=== PATIENT | female | born 2000 | race Caucasian/White ===

== ENCOUNTER 2022-07-22 11:56 | Inpatient (IN) | payer OTHER ==
[~2022-07-22] VITALS: Ht 157.5 cm; Wt 69.4 kg
[2022-07-22] VITALS (25 sets, daily range): BP systolic 96–135; BP diastolic 43–81
[2022-07-22] MEDS ORDERED: PRENTAB9 PO (12:23)
[2022-07-22] MEDS ORDERED: HOME MED LIST COMPLETE! XX SCH (12:25)
[2022-07-22] MEDS ORDERED: LACTATED RINGER'S 1000 ML IV STA (13:28)
[2022-07-22] MEDS ORDERED: METHYLERGONOVINE MALEATE 0.2 MG/ML VIAL (J2210) IM PRN (13:30)
[2022-07-22] MEDS ORDERED: LIDOCAINE 1% MDV 20ML VIAL INFIL PRN (13:30)
[2022-07-22] MEDS ORDERED: CARBOPROST TROMETHAMINE 250 MCG/ML AMP IM PRN (13:30)
[2022-07-22] MEDS ORDERED: PROMETHAZINE 25MG/ML 1ML VIAL IV ONE (13:30)
[2022-07-22] MEDS ORDERED: BUTORPHANOL 2 MG/ML 1ML VIAL IV ONE (13:30)
[2022-07-22] MEDS ORDERED: TRANEXAMIC ACID INJection 1,000 MG in NS 100 ML IV PRN (13:30)
[2022-07-22] MEDS ORDERED: LR 1,000 ML IV SCH (13:30)
[2022-07-22] MEDS ORDERED: OXYTOCIN DRIP 30 UNITS in IV 1 EA IV PRN ×4 (13:30)
[2022-07-22] MEDS ORDERED: OXYTOCIN INJ 10UNITS/ML 1ML VIAL IM PRN (13:30)
[2022-07-22 14:16] LABS: HEMATOCRIT 35.9 % (36.0-47.0); MEAN CORPUSCULAR HEMOGLOBIN 29.3 pg (27.0-33.0); MEAN CORPUSCULAR HGB CONC 33.4 g/dl (32.0-36.5); MEAN CORPUSCULAR VOLUME 87.8 fl (80.0-96.0); PLATELET COUNT, AUTOMATED 308 10^3/uL (150-450); RED BLOOD COUNT 4.09 10^6/uL (4.00-5.40)
[2022-07-22] MEDS ORDERED: ePHEDrine SULFATE 25 MG/5 ML(5MG/ML) SYRINGE IVP PRN (14:30)
[2022-07-22] MEDS ORDERED: EPIDURAL/PCA KEYS XX PRN (14:30)
[2022-07-22] MEDS ORDERED: diphenhydrAMINE 50MG/ML VIAL IV PRN (14:30)
[2022-07-22] MEDS ORDERED: NALOXONE INJ 0.4MG/1ML VIAL IV PRN (14:30)
[2022-07-22] MEDS ORDERED: FENTANYL/ROPIVACAINE/NACL BAG 100 ML EPIDURAL SCH (14:30)
[2022-07-22] MEDS ORDERED: ONDANSETRON 4MG 2ML VIAL IV PRN (14:30)
[2022-07-22] MEDS ORDERED: LR 500 ML IV PRN (14:30)
[2022-07-22] MEDS ORDERED: METHYLERGONOVINE MALEATE 0.2 MG TAB PO PRN (17:35)
[2022-07-22] MEDS ORDERED: DIBUCAINE 1% OINTMENT 30GM TOP PRN (17:35)
[2022-07-22] MEDS ORDERED: ANUSOL HC CREAM 30GM TOP PRN (17:35)
[2022-07-22] MEDS ORDERED: DOCUSATE SODIUM 100MG CAPSULE PO PRN (17:35)
[2022-07-22] MEDS ORDERED: RHOGAM 300MCG (1500IU) INJ IM SCH (17:35)
[2022-07-22] MEDS ORDERED: ACETAMINOPHEN 500 MG TAB PO PRN (17:35)
[2022-07-23] MEDS: IBUPROFEN 800 MG TAB PO PRN ×2 (05:58→20:17)
[2022-07-23 06:00] VITALS: BP 121/77
[2022-07-23] MEDS: PRENATAL VITAMINS CHEWABLE TABLET PO SCH (08:29)
[2022-07-23 18:04] VITALS: BP 109/56
[2022-07-24 05:33] VITALS: BP 103/57
[2022-07-24] MEDS ORDERED: MEASLES,MUMPS,RUBELLA VACCINE INJ (MMR-II) SC.IMMUN ONE (09:00)
[2022-07-24] MEDS: PRENATAL VITAMINS CHEWABLE TABLET PO SCH (10:04)
== END 2022-07-24 13:27 | disposition home or self-care (01) | DRG 807 ==
LOC: M LDO 11:56 → M LDI 13:32 → M OBS 20:36
PROVIDERS: ADMIT Advanced Practice Midwife; ATTEND Obstetrics & Gynecology
PROC: 10E0XZZ Delivery of Products of Conception, External Approach (ICD-10-PCS; principal; 2022-07-22)
PROC: 0KQM0ZZ Repair Perineum Muscle, Open Approach (ICD-10-PCS; 2022-07-22)
DX: O70.1 Second degree perineal laceration during delivery (principal); Z37.0 Single live birth; Z3A.39 39 weeks gestation of pregnancy; O69.81X0 Labor and delivery complicated by cord around neck, without compression, not applicable or unspecified